=== PATIENT | male | born 1970 | race Caucasian/White ===

== ENCOUNTER 2016-06-17 21:00 | Emergency (ER) | payer BC, OTHER ==
[~2016-06-17] VITALS: Ht 167.6 cm; Wt 103.0 kg
[~2016-06-17 21:00] MED LIST: LORA1TAB PO
[2016-06-17 21:24] VITALS: Ht 167.6 cm; Wt 103.0 kg
[2016-06-17] MEDS ORDERED: FLUORESCEIN STRIP BOTH EYES ONE (22:30)
--- NOTE | 2016-06-17 22:39 | ERD ---
ER Documentation Chief Complaint Date/Time DATE: 06/17/16 TIME: 22:36 Chief Complaint Eye redness and irritation HPI 46-year-old male presents here in emergency department for complaints of irritation, foreign body sensation and redness in both eyes after feeling that something when inside his eyes this morning. Patient is complaining of burning pain,4/10 scale, not better or worse with anything. Patient denies any vision changes. Patient denies any tearing. Patient denies any direct trauma and affected area. ROS All systems reviewed and are negative except as per history of present illness. Medications Home Meds Active Scripts Lorazepam* (Lorazepam*) 1 Mg Tablet, 1 MG PO Q8H Y for ANXIETY, #10 Prov:KOREY GUZMAN MD 02/05/15 Allergies Allergies: Coded Allergies: No Known Allergy (Verified Allergy, Mild, 03/22/09) PMhx/Soc Medical and Surgical Hx: pt denies Medical Hx, pt denies Surgical Hx History of Surgery: No Anesthesia Reaction: No Hx Neurological Disorder: No Hx Respiratory Disorders: No Hx Cardiac Disorders: No Hx Psychiatric Problems: No Hx Miscellaneous Medical Probl: No Hx Alcohol Use: Yes Hx Substance Use: Yes Hx Tobacco Use: Yes FmHx Family History: No coronary disease, No diabetes, No other Physical Exam Vitals Vital Signs Date Time Temp Pulse Resp B/P Pulse Ox O2 Delivery O2 Flow Rate FiO2 06/17/16 21:24 97.4 79 18 126/81 97 Physical Exam GENERAL: The patient is well developed and appropriate for usual state of health, in no apparent distress. HEENT: Atraumatic. His eyes are PERRL EOM intact. No erythema in the conjunctiva noted. Ears: Normal tympanic membrane, no erythema or bulging. No ear canal swelling. No ear discharge. Nose: normal nasal turbinates, no erythema or swelling. Normal nasal discharge. Throat: oropharynx clear. No tonsillar swelling or tonsillar exudates. No lymphadenopathy. CHEST: Clear to auscultation bilaterally. There are no rales, wheezes or rhonchi. HEART: Regular rate and rhythm. No murmurs, clicks, rubs or gallops. No S3 or S4. ABDOMEN: Soft, nontender and nondistended. Good bowel sounds. No rebound or guarding. No gross peritonitis. No gross organomegaly or masses. No Riddle sign or McBurney point tenderness. BACK: No midline or flank tenderness. EXTREMITIES: Equal pulses bilaterally. There is no peripheral clubbing, cyanosis or edema. No focal swelling or erythema. Full range of motion. Grossly neurovascularly intact. NEURO: Alert and oriented. Cranial nerves 2-12 intact. Motor strength in all 4 extremities with 5/5 strength. Sensation grossly intact. Normal speech and gait. SKIN: There is no apparent rash or petechia. The skin is warm and dry. HEMATOLOGIC AND LYMPHATIC: There is no evidence of excessive bruising or lymphedema. No gross cervical, axillary, or inguinal lymphadenopathy. Results 24 hrs Current Medications Medications (Trade) Dose Ordered Sig/Mary Ann Route PRN Reason Start Time Stop Time Status Last Admin Dose Admin Fluorescein Sodium ([id number]-Z-Thwda) 1 strip ONCE ONCE BOTH EYES 06/17/16 22:30 06/17/16 22:31 DC Procedure Note: After patient's verbal consent,a Akhil lens irrigation was done with normal saline 1 L was irrigated in both eyes, verbalized feeling much better afterwards. Procedures/MDM Procedure Note: After obtaining informed consent, the both eyes was stained using fluorescein dye. After staining the eye, A Wood's lamp was used to evaluate the eye. There is no foreign body noted in the eye. No corneal abrasions noted. Noted some conjunctival abrasions. Patient tolerated procedure well. Medical decision making: Patient symptoms like it consistent with conjunctival abrasions. The akhil lens irrigation was done so ensure that there was no foreign body, upon examination, no foreign body was noted, verbalizing much better afterwards. No corneal abrasion noted. No HSV noted. No symptoms of any other eye emergencies at this time. Patient was given prescription for Vigamox ophthalmic solution, is advised to avoid rubbing the eyes, follow up with his primary care doctor in 2 days for reevaluation of symptoms. Patient was advised to see eye doctor for further evaluation next 1-2 days Departure Diagnosis: Primary Impression: Conjunctival abrasion Encounter type: initial encounter Laterality: unspecified laterality Qualified Code: S05.00XA - Conjunctival abrasion, unspecified laterality, initial encounter Condition: Stable Patient Instructions: Conjunctivitis Caused by Irritation AARON TORRES NP Jun 17, 2016 22:39
[2016-06-17] MEDS ORDERED: TETRACAINE 0.5% 4 ML OPH BOTH EYES ONE (23:00)
[2016-06-17] MEDS ORDERED: SODIUM CHLORIDE 0.9% 1L IRRIG IRR SCH (23:00)
[2016-06-17] MEDS ORDERED: VIGA BOTH EYES (23:02)
[2016-06-18 00:04] VITALS: BP 149/81; PULSE 85; RESP 18; TEMP 98.1
== END 2016-06-17 23:49 | disposition home or self-care (01) ==
LOC: FTE 21:00
DX: S05.01XA Injury of conjunctiva and corneal abrasion without foreign body, right eye, initial encounter (principal); X58.XXXA Exposure to other specified factors, initial encounter; Y92.9 Unspecified place or not applicable; Z87.891 Personal history of nicotine dependence
CPT/HCPCS: 99284